=== PATIENT | female | born 1960 | race Hispanic/Latino ===

== ENCOUNTER 2022-02-27 10:28 | Emergency (ER) | payer BC ==
--- OUTSIDE RECORDS SUMMARY | 2022-02-27 10:35 | XMS REPORT | Clinical Summary ---
:1960 Author Organization [facility] MD [facility] Address [address] [place] [address] Care Team Providers Name Role Phone Avis Sheffield MD Unavailable Hao Mcpherson MD Unavailable Allergies Active Allergy Reactions Severity Noted Date Comments Sulfamethoxazole-Trime Other (See Comments) Low 08/09/2015 Soft stools, rash thoprim Other - Food 08/27/2015 Peanut allergy per allergy testing . Patient denies reaction to pea nuts Medications Medication Sig Dispensed Refills Start Date End Date Status cholecalciferol, Take 5,000 Units 0 Active vitamin D3, (VITAMIN by mouth as D3) 5,000 units tab needed. tablet coenzyme Q10 (CO Q-10) Take 100 mg by 0 Active 100 mg capsule mouth as needed. KRILL OIL ORAL Take 1 tablet by 0 Active mouth as needed. CYANOCOBALAMIN, Take 1 tablet by 0 Active VITAMIN B-12, (VITAMIN mouth as needed. B-12 ORAL) CALCIUM Take 6 tablets by 0 Ac tive CITRATE/VITAMIN D3 mouth as needed. 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 Overview: Right breast Polyp 04/16/2011 Overview: benign colon polyp Gastric reflux 04/16/2011 Osteopenia 04/16/2008 Hyperlipidemia Hiatal hernia Overview: Small hernia Surgical History Surgery Date Site/Laterality Comments COLONOSCOPY 06/14/2014 - 07/14/2014 UPPER GASTROINTESTINAL 04/16/2014 - ENDOSCOPY 04/15/2015 HYSTERECTOMY 04/16/2012 - bladder and rect al 04/15/2013 repair and left oophorectomy FOOT MASS EXCISION 03/16/2014 - Left 04/15/2014 EXCISION WIDE LOCAL FACIAL 12/15/2013 - AREA 01/13/2014 LUMPECTOMY BREAST 08/19/2015 Right Medical History Medical History Date Comments Hyperlipidemia Gastric reflux 2012 Polyp 2011 benign colon polyp Menopause Osteopenia 2009 Herpes zoster 1995 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 Ri ght breast Hiatal hernia Small hernia Basal cell carcinoma of skin 2014 Family History Medical History Relation Name Comments Melanoma Daughter Diabetes Father Heart disease Father Hyperlipidemia Father Diabetes Mother Hyperlipidemia Mother Relation Name Status Comments Daughter Alive Father Mother Alive Social History Tobacco Use Types Packs/Day Years Used Date Smoking Tobacco: Never Smokeless Tobacco: Never Alcohol Use Standard Drinks/Week Comments No 0 (1 standard drink = 0.6 oz pure alcoho l) Sex Assigned at Date Recorded Female 09/30/2018 4:33 PM CDT Obstetrics History Para Term AB IAB SAB Ectopic Multiple Living Live Births 4 3 0 1 1 3 2 Date Outcome GA Total Labor/2nd/3rd Weight Sex Delivery Anes PTL Mariela A 1 A5 Name Clin Labor IAB Para M Vag-Spont N Kayli ng Complications: None Para F Vag-Spont N Living Complications: None Para Comments Age ofMenarche: 12 Age of Parity: 18 Use of oral contraceptives for less than one year, and she has used premarin less than one year as well. Patient cl any history of abnormal p ap smears Last Filed Vital Signs Not on file Plan of Treatment Health Maintenance Due Date Last Done Comments COVID-19 Vaccination (#1) 1960 Results Not on fileafter 02/27/2021 Insurance Payer Benefit Plan / Subscriber ID Effective Dates Phone Addre ss Type Group [employer] [id number] 2018-Present [address] [facility] [id number] ([facility]) Care Teams Airport Screener Relationship Specialty Start Date End Date Avis Sheffield, PCP - External Referring 05/17/15 Hao Mcpherson MD PCP - External Follow Up A Internal Medicine 06/15/15
--- OUTSIDE RECORDS SUMMARY | 2022-02-27 10:37 | XMS REPORT | Continuity of Care Document ---
:1960 Author Organization [facility] t Address [address] [place] [address] Care Team Providers Name Role Phone [email or web address] Attending Clinician Unavailable Nereida Canada Attending Clinician [phone] Juan Francisco Dougherty Attending Clinician [phone] EBONI_Sb Admitting Clinician Unavailable Payers Payer Name Policy Type Policy Number Effective Date Expiration Date S [place] [id number] 2021 00:00:00 [place] Problems Condition Condition Condition Status Onset Resolution Last Treating Co mments Source Name Details Category Date Date Treatment Clinician Date 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 Center Right breast Polyp Polyp Disease Active Overview: Univer s 04-16 Formattin ity of 00:00: g of this note might be Anderso different n from the Cancer original. Center benign colon polyp Gastric Gastric Disease Active Univers reflux reflux 04-16 ity of 00:00: [place] 00 MD [facility] Osteopenia Osteopenia Disease Active U nivers 04-16 ity of 00:00: [place] 00 MD [facility] Atypical Atypical Problem Active [facility] a hyperplasi Hyperplasi Me dical a of a of breast Breast Cystocele Cystocele Problem Active [facility]ory via without without Medical uterine Uterine prolapse Prolapse Atrophic Atrophic Problem Active [facility] a vaginitis Vaginitis Medi alexa Increased Increased Problem Active [facility] via frequency Frequency Medi alexa of of urination Urination Urgent Urgent Problem Active [facility] desire to [place] to Medi alexa urinate Urinate Hyperlipid Hyperlipid Disease Active U nivers emia emia [facility] [place] MD [facility] Hiatal Hiatal Disease Active Overview: [facility] hernia hernia Formattin ity of g of this [place] note might be Andmonicao alanna n from the Cancer original. Center Small hernia Allergies, Adverse Reactions, Alerts Allergy Allergy Status Severity Reaction(s) Onset Inactive Treating Comm ents Source Name Type Date Date Clinician Other - Propensi Active Peanut Univers Food ty to 5-13 allergy ity of adverse 00:00: per [place] reaction 00 allergy s testing. Alcides Patient n denies Cancer reaction Center to peanuts Sulfamet Drug Active Other (See Soft Univ ers hoxazole Intolera Comments) 4-25 stools, it y of -Trimeth nce 00:00: rash [place] oprim 00 MD [facility] Miralax Allergy Active [facility] to Medical substanc e SULFA Allergy Active Rash [facility] (SULFONA to Medical MIDE substanc ANTIBIOT e ICS) Family History Family Member Diagnosis Comments Start Date Stop Date Source Natural father Heart disease [facility] [place] [facility] Natural father Hyperlipidemia [facility] [place] Natural father Diabetes [facility] [place] Natural mother Diabetes [facility] [place] Natural mother Hyperlipidemia [facility] MD [facility] Natural daughter Melanoma [facility] [place] MD [facility] Social History Social Habit Start Date Stop Date Quantity Comments Source Alcohol intake 2018-10-02 2018-10-02 Current University of 00:00:00 00:00:00 non-drinker of [facility] (finding[facility] Tobacco use and 2015-08-09 2015-08-09 Smokeless tobacco Un iversity of exposure 00:00:00 00:00:00 non-user [facility] Sex Assigned At [birth year] F Univers[facility] y of 00:00:00 00:00:00 Reshma wallace [facility] Smoking Status Start Date Stop Date Source Never smoked tobacco [facility] Medications Ordered Filled Start Stop Current Ordering Indication Dosage Frequency Signature Comments Components Source Medication Medication Date Date Medication? Clinician (SIG) Name Name cholecalcif Yes 5000U Take 5,000 Univers guru, 6-19 Units by ity of vitamin D3, [place]:19[place] (VITAMIN 53 needed. D3) 5,000 Anderso units tab n tablet [facility] coenzyme Yes 100mg Take 100 Univ ers Q10 (CO 6-19 mg by ity of Q-10) 100 10:19[place] mg capsule 53 needed. MD Marion hoang [facility] KRILL OIL Yes 1{tbl} Take 1 Univ ers ORAL 6-19 tablet by ity of 10:19: mouth as [place] 53 needed. MD Marion hoang [facility] CYANOCOBALA Yes 1{tbl} Take 1 Un binta MIN, 6-19 tablet by ity of VITAMIN 10:19: mouth as [place] B-12, 53 needed. (VITAMIN Anderso B-12 ORAL) viktor [facility] CALCIUM Yes 6{tbl} Take 6 Univer s CITRATE/VIT 6-19 tablets by it y of BRISENO D3 10:19: mouth as [place] (CALCIUM 53 needed. CITRATE + Anderso ORAL) [facility] azithromyci azithromyci No azithromyc [facility] n 250 mg n 250 mg in 250 mg Me dical tablet tablet tablet azithromyci azithromyci No azithromyc [facility] n 500 mg n 500 mg in 500 mg Me dical tablet tablet tablet bromphenira bromphenira No bromphenir [facility] mine-pseudo mine-pseudo amine-pseu Medical ephedrine-D ephedrine-D doephedrin M 2 mg-30 M 2 mg-30 e-DM 2 mg-10 mg/5 mg-10 mg/5 mg-30 mL oral mL oral mg-10 mg/5 syrup syrup mL oral syrup cephalexin cephalexin No cephalexin [facility] 250 mg 250 mg 250 mg Medical capsule capsule capsule Take 1 Take 1 Take 1 capsule by capsule by capsule by oral route oral route oral route as as as directed. directed. directed. esomeprazol esomeprazol No esomeprazo [facility] e magnesium e magnesium le M edical 20 mg 20 mg magnesium capsule,del capsule,del 20 mg ayed ayed capsule,de release release layed release etodolac etodolac No etodolac [facility] via 500 mg 500 mg 500 mg Medical tablet tablet tablet GaviLyte-G GaviLyte-G No GaviLyte-G [facility] 236 236 236 Medical gram-22.74 gram-22.74 gram-22.74 gram-6.74 gram-6.74 gram-6.74 gram-5.86 gram-5.86 gram-5.86 gram oral gram oral gram oral solution solution solution metformin metformin No metformin [facility] 500 mg 500 mg 500 mg Medical tablet tablet tablet nitrofurant nitrofurant No nitrofuran [facility] oin oin toin Medical monohydrate monohydrate monohydrat /macrocryst /macrocryst e/macrocry als 100 mg als 100 mg stals 100 capsule capsule mg capsule Take 1 Take 1 Take 1 capsule by capsule by capsule by oral route oral route oral route as as as directed. directed. directed. Premarin Premarin No Premarin [facility] via 0.625 0.625 0.625 Medical mg/gram mg/gram mg/gram vaginal vaginal vaginal cream cream cream ranitidine ranitidine No ranitidine [facility] 300 mg 300 mg 300 mg Medical tablet TAKE tablet TAKE tablet 1 TABLET BY 1 TABLET BY TAKE 1 MOUTH EVERY MOUTH EVERY TABLET BY DAY DAY MOUTH EVERY DAY RepHresh RepHresh No 1g RepHresh [facility] via vaginal gel vaginal gel vaginal Medical Insert 1 g Insert 1 g gel Insert every 72 every 72 1 g every hours by hours by 72 hours vaginal vaginal by vaginal route at route at route at bedtime for bedtime for bedtime 90 days. 90 days. for 90 days. Trimo-Mahajan Trimo-Mahajan No Trimo-Mahajan [facility] Jelly 0.025 Jelly 0.025 Jelly Medical %-0.01 % %-0.01 % 0.025 vaginal vaginal %-0.01 % INSERT 1 G INSERT 1 G vaginal EVERY 72 EVERY 72 INSERT 1 G HOURS BY HOURS BY EVERY 72 VAGINAL VAGINAL HOURS BY ROUTE ROUTE VAGINAL DIRECTED DIRECTED ROUTE FOR 30 FOR 30 DIRECTED DAYS. DAYS. FOR 30 DAYS. azithromyci azithromyci No azithromyc [facility] n 250 mg n 250 mg in 250 mg Me dical tablet tablet tablet azithromyci azithromyci No azithromyc [facility] n 500 mg n 500 mg in 500 mg Me dical tablet tablet tablet benzonatate benzonatate No benzonatat [facility] 200 mg 200 mg e 200 mg Medical capsule capsule capsule TAKE 1 TAKE 1 TAKE 1 CAPSULE BY CAPSULE BY CAPSULE BY MOUTH THREE MOUTH THREE MOUTH TIMES A DAY TIMES A DAY THREE NEEDED NEEDED TIMES A DAY NEEDED bromphenira bromphenira No bromphenir [facility] mine-pseudo mine-pseudo amine-pseu Medical ephedrine-D ephedrine-D doephedrin M 2 mg-30 M 2 mg-30 e-DM 2 mg-10 mg/5 mg-10 mg/5 mg-30 mL oral mL oral mg-10 mg/5 syrup syrup mL oral syrup cephalexin cephalexin No cephalexin [facility] 250 mg 250 mg 250 mg Medical capsule capsule capsule Take 1 Take 1 Take 1 capsule by capsule by capsule by oral route oral route oral route as as as directed. directed. directed. esomeprazol esomeprazol No esomeprazo [facility] e magnesium e magnesium le M edical 20 mg 20 mg magnesium capsule,del capsule,del 20 mg ayed ayed capsule,de release release layed release etodolac etodolac No etodolac [facility] via 500 mg 500 mg 500 mg Medical tablet tablet tablet GaviLyte-G GaviLyte-G No GaviLyte-G [facility] 236 236 236 Medical gram-22.74 gram-22.74 gram-22.74 gram-6.74 gram-6.74 gram-6.74 gram-5.86 gram-5.86 gram-5.86 gram oral gram oral gram oral solution solution solution metformin metformin No metformin [facility] 500 mg 500 mg 500 mg Medical tablet tablet tablet nitrofurant nitrofurant No nitrofuran [facility] oin oin toin Medical monohydrate monohydrate monohydrat /macrocryst /macrocryst e/macrocry als 100 mg als 100 mg stals 100 capsule capsule mg capsule Take 1 Take 1 Take 1 capsule by capsule by capsule by oral route oral route oral route as as as directed. directed. directed. nystatin nystatin No nystatin [facility] via 100,000 100,000 100,000 Medica l unit/mL unit/mL unit/mL oral oral oral suspension suspension suspension GIVE 5 ML GIVE 5 ML GIVE 5 ML BY BY BY MOUTH/THROA MOUTH/THROA MOUTH/THRO T SWISH AND T SWISH AND AT SWISH SWALLOW 4 SWALLOW 4 AND TIMES A DAY TIMES A DAY SWALLOW 4 NOT NOT TIMES A CONTRACTED* CONTRACTED* DAY NOT CONTRACTED Premarin Premarin No Premarin [facility] via 0.625 0.625 0.625 Medical mg/gram mg/gram mg/gram vaginal vaginal vaginal cream cream cream ranitidine ranitidine No ranitidine [facility] 300 mg 300 mg 300 mg Medical tablet TAKE tablet TAKE tablet 1 TABLET BY 1 TABLET BY TAKE 1 MOUTH EVERY MOUTH EVERY TABLET BY DAY DAY MOUTH EVERY DAY RepHresh RepHresh No 1g RepHresh [facility]ory via vaginal gel vaginal gel vaginal Medical Insert 1 g Insert 1 g gel Insert every 72 every 72 1 g every hours by hours by 72 hours vaginal vaginal by vaginal route at route at route at bedtime for bedtime for bedtime 90 days. 90 days. for 90 days. Trimo-Mahajan Trimo-Mahajan No Trimo-Mahajan [facility] Jelly 0.025 Jelly 0.025 Jelly Medical %-0.01 % %-0.01 % 0.025 vaginal vaginal %-0.01 % INSERT 1 G INSERT 1 G vaginal EVERY 72 EVERY 72 INSERT 1 G HOURS BY HOURS BY EVERY 72 VAGINAL VAGINAL HOURS BY ROUTE ROUTE VAGINAL DIRECTED DIRECTED ROUTE FOR 30 FOR 30 DIRECTED DAYS. DAYS. FOR 30 DAYS. azithromyci azithromyci No azithromyc [facility] n 250 mg n 250 mg in 250 mg Me dical tablet tablet tablet azithromyci azithromyci No azithromyc [facility] n 500 mg n 500 mg in 500 mg Me dical tablet tablet tablet benzonatate benzonatate No benzonatat [facility] 200 mg 200 mg e 200 mg Medical capsule capsule capsule TAKE 1 TAKE 1 TAKE 1 CAPSULE BY CAPSULE BY CAPSULE BY MOUTH THREE MOUTH THREE MOUTH TIMES A DAY TIMES A DAY THREE NEEDED NEEDED TIMES A DAY NEEDED bromphenira bromphenira No bromphenir [facility] mine-pseudo mine-pseudo amine-pseu Medical ephedrine-D ephedrine-D doephedrin M 2 mg-30 M 2 mg-30 e-DM 2 mg-10 mg/5 mg-10 mg/5 mg-30 mL oral mL oral mg-10 mg/5 syrup syrup mL oral syrup cephalexin cephalexin No cephalexin [facility] 250 mg 250 mg 250 mg Medical capsule capsule capsule Take 1 Take 1 Take 1 capsule by capsule by capsule by oral route oral route oral route as as as directed. directed. directed. esomeprazol esomeprazol No esomeprazo [facility] e magnesium e magnesium le M edical 20 mg 20 mg magnesium capsule,del capsule,del 20 mg ayed ayed capsule,de release release layed release etodolac etodolac No etodolac [facility] via 500 mg 500 mg 500 mg Medical tablet tablet tablet GaviLyte-G GaviLyte-G No GaviLyte-G [facility] 236 236 236 Medical gram-22.74 gram-22.74 gram-22.74 gram-6.74 gram-6.74 gram-6.74 gram-5.86 gram-5.86 gram-5.86 gram oral gram oral gram oral solution solution solution metformin metformin No metformin [facility] 500 mg 500 mg 500 mg Medical tablet tablet tablet nitrofurant nitrofurant No nitrofuran [facility] oin oin toin Medical monohydrate monohydrate monohydrat /macrocryst /macrocryst e/macrocry als 100 mg als 100 mg stals 100 capsule capsule mg capsule Take 1 Take 1 Take 1 capsule by capsule by capsule by oral route oral route oral route as as as directed. directed. directed. nystatin nystatin No nystatin [facility] via 100,000 100,000 100,000 Medica l unit/mL unit/mL unit/mL oral oral oral suspension suspension suspension GIVE 5 ML GIVE 5 ML GIVE 5 ML BY BY BY MOUTH/THROA MOUTH/THROA MOUTH/THRO T SWISH AND T SWISH AND AT SWISH SWALLOW 4 SWALLOW 4 AND TIMES A DAY TIMES A DAY SWALLOW 4 NOT NOT TIMES A CONTRACTED* CONTRACTED* DAY NOT CONTRACTED Premarin Premarin No Premarin [facility] via 0.625 0.625 0.625 Medical mg/gram mg/gram mg/gram vaginal vaginal vaginal cream cream cream ranitidine ranitidine No ranitidine [facility] 300 mg 300 mg 300 mg Medical tablet TAKE tablet TAKE tablet 1 TABLET BY 1 TABLET BY TAKE 1 MOUTH EVERY MOUTH EVERY TABLET BY DAY DAY MOUTH EVERY DAY RepHresh RepHresh No 1g RepHresh Nory via vaginal gel vaginal gel vaginal Medical Insert 1 g Insert 1 g gel Insert every 72 every 72 1 g every hours by hours by 72 hours vaginal vaginal by vaginal route at route at route at bedtime for bedtime for bedtime 90 days. 90 days. for 90 days. Trimo-Mahajan Trimo-Mahajan No Trimo-Mahajan [facility] Jelly 0.025 Jelly 0.025 Jelly Medical %-0.01 % %-0.01 % 0.025 vaginal vaginal %-0.01 % INSERT 1 G INSERT 1 G vaginal EVERY 72 EVERY 72 INSERT 1 G HOURS BY HOURS BY EVERY 72 VAGINAL VAGINAL HOURS BY ROUTE ROUTE VAGINAL DIRECTED DIRECTED ROUTE FOR 30 FOR 30 DIRECTED DAYS. DAYS. FOR 30 DAYS. azithromyci azithromyci No azithromyc [facility] n 250 mg n 250 mg in 250 mg Me dical tablet tablet tablet azithromyci azithromyci No azithromyc [facility] n 500 mg n 500 mg in 500 mg Me dical tablet tablet tablet benzonatate benzonatate No benzonatat [facility] 200 mg 200 mg e 200 mg Medical capsule capsule capsule TAKE 1 TAKE 1 TAKE 1 CAPSULE BY CAPSULE BY CAPSULE BY MOUTH THREE MOUTH THREE MOUTH TIMES A DAY TIMES A DAY THREE NEEDED NEEDED TIMES A DAY NEEDED bromphenira bromphenira No bromphenir [facility] mine-pseudo mine-pseudo amine-pseu Medical ephedrine-D ephedrine-D doephedrin M 2 mg-30 M 2 mg-30 e-DM 2 mg-10 mg/5 mg-10 mg/5 mg-30 mL oral mL oral mg-10 mg/5 syrup syrup mL oral syrup cephalexin cephalexin No cephalexin [facility] 250 mg 250 mg 250 mg Medical capsule capsule capsule Take 1 Take 1 Take 1 capsule by capsule by capsule by oral route oral route oral route as as as directed. directed. directed. esomeprazol esomeprazol No esomeprazo [facility] e magnesium e magnesium le M edical 20 mg 20 mg magnesium capsule,del capsule,del 20 mg ayed ayed capsule,de release release layed release etodolac etodolac No etodolac [facility] via 500 mg 500 mg 500 mg Medical tablet tablet tablet GaviLyte-G GaviLyte-G No GaviLyte-G [facility] 236 236 236 Medical gram-22.74 gram-22.74 gram-22.74 gram-6.74 gram-6.74 gram-6.74 gram-5.86 gram-5.86 gram-5.86 gram oral gram oral gram oral solution solution solution metformin metformin No metformin [facility] 500 mg 500 mg 500 mg Medical tablet tablet tablet nitrofurant nitrofurant No nitrofuran [facility] oin oin toin Medical monohydrate monohydrate monohydrat /macrocryst /macrocryst e/macrocry als 100 mg als 100 mg stals 100 capsule capsule mg capsule Take 1 Take 1 Take 1 capsule by capsule by capsule by oral route oral route oral route as as as directed. directed. directed. nystatin nystatin No nystatin [facility] via 100,000 100,000 100,000 Medica l unit/mL unit/mL unit/mL oral oral oral suspension suspension suspension GIVE 5 ML GIVE 5 ML GIVE 5 ML BY BY BY MOUTH/THROA MOUTH/THROA MOUTH/THRO T SWISH AND T SWISH AND AT SWISH SWALLOW 4 SWALLOW 4 AND TIMES A DAY TIMES A DAY SWALLOW 4 NOT NOT TIMES A CONTRACTED* CONTRACTED* DAY NOT CONTRACTED Premarin Premarin No Premarin [facility] via 0.625 0.625 0.625 Medical mg/gram mg/gram mg/gram vaginal vaginal vaginal cream cream cream ranitidine ranitidine No ranitidine [facility] 300 mg 300 mg 300 mg Medical tablet TAKE tablet TAKE tablet 1 TABLET BY 1 TABLET BY TAKE 1 MOUTH EVERY MOUTH EVERY TABLET BY DAY DAY MOUTH EVERY DAY RepHresh RepHresh No 1g RepHresh Nory via vaginal gel vaginal gel vaginal Medical Insert 1 g Insert 1 g gel Insert every 72 every 72 1 g every hours by hours by 72 hours vaginal vaginal by vaginal route at route at route at bedtime for bedtime for bedtime 90 days. 90 days. for 90 days. Trimo-Mahajan Trimo-Mahajan No Trimo-Mahajan [facility] Jelly 0.025 Jelly 0.025 Jelly Medical %-0.01 % %-0.01 % 0.025 vaginal vaginal %-0.01 % INSERT 1 G INSERT 1 G vaginal EVERY 72 EVERY 72 INSERT 1 G HOURS BY HOURS BY EVERY 72 VAGINAL VAGINAL HOURS BY ROUTE ROUTE VAGINAL DIRECTED DIRECTED ROUTE FOR 30 FOR 30 DIRECTED DAYS. DAYS. FOR 30 DAYS. azithromyci azithromyci No azithromyc [facility] n 250 mg n 250 mg in 250 mg Me dical tablet tablet tablet azithromyci azithromyci No azithromyc [facility] n 500 mg n 500 mg in 500 mg Me dical tablet tablet tablet benzonatate benzonatate No benzonatat [facility] 200 mg 200 mg e 200 mg Medical capsule capsule capsule TAKE 1 TAKE 1 TAKE 1 CAPSULE BY CAPSULE BY CAPSULE BY MOUTH THREE MOUTH THREE MOUTH TIMES A DAY TIMES A DAY THREE NEEDED NEEDED TIMES A DAY NEEDED bromphenira bromphenira No bromphenir [facility] mine-pseudo mine-pseudo amine-pseu Medical ephedrine-D ephedrine-D doephedrin M 2 mg-30 M 2 mg-30 e-DM 2 mg-10 mg/5 mg-10 mg/5 mg-30 mL oral mL oral mg-10 mg/5 syrup syrup mL oral syrup cephalexin cephalexin No cephalexin [facility] 250 mg 250 mg 250 mg Medical capsule capsule capsule Take 1 Take 1 Take 1 capsule by capsule by capsule by oral route oral route oral route as as as directed. directed. directed. esomeprazol esomeprazol No esomeprazo [facility] e magnesium e magnesium le M edical 20 mg 20 mg magnesium capsule,del capsule,del 20 mg ayed ayed capsule,de release release layed release etodolac etodolac No etodolac [facility] via 500 mg 500 mg 500 mg Medical tablet tablet tablet GaviLyte-G GaviLyte-G No GaviLyte-G [facility] 236 236 236 Medical gram-22.74 gram-22.74 gram-22.74 gram-6.74 gram-6.74 gram-6.74 gram-5.86 gram-5.86 gram-5.86 gram oral gram oral gram oral solution solution solution metformin metformin No metformin [facility] 500 mg 500 mg 500 mg Medical tablet tablet tablet nitrofurant nitrofurant No nitrofuran [facility] oin oin toin Medical monohydrate monohydrate monohydrat /macrocryst /macrocryst e/macrocry als 100 mg als 100 mg stals 100 capsule capsule mg capsule Take 1 Take 1 Take 1 capsule by capsule by capsule by oral route oral route oral route as as as directed. directed. directed. nystatin nystatin No nystatin [facility] via 100,000 100,000 100,000 Medica l unit/mL unit/mL unit/mL oral oral oral suspension suspension suspension GIVE 5 ML GIVE 5 ML GIVE 5 ML BY BY BY MOUTH/THROA MOUTH/THROA MOUTH/THRO T SWISH AND T SWISH AND AT SWISH SWALLOW 4 SWALLOW 4 AND TIMES A DAY TIMES A DAY SWALLOW 4 NOT NOT TIMES A CONTRACTED* CONTRACTED* DAY NOT CONTRACTED Premarin Premarin No Premarin [facility] via 0.625 0.625 0.625 Medical mg/gram mg/gram mg/gram vaginal vaginal vaginal cream cream cream ranitidine ranitidine No ranitidine [facility] 300 mg 300 mg 300 mg Medical tablet TAKE tablet TAKE tablet 1 TABLET BY 1 TABLET BY TAKE 1 MOUTH EVERY MOUTH EVERY TABLET BY DAY DAY MOUTH EVERY DAY RepHresh RepHresh No 1g RepHresh Nory via vaginal gel vaginal gel vaginal Medical Insert 1 g Insert 1 g gel Insert every 72 every 72 1 g every hours by hours by 72 hours vaginal vaginal by vaginal route at route at route at bedtime for bedtime for bedtime 90 days. 90 days. for 90 days. Trimo-Mahajan Trimo-Mahajan No Trimo-Mahajan [facility] Jelly 0.025 Jelly 0.025 Jelly Medical %-0.01 % %-0.01 % 0.025 vaginal vaginal %-0.01 % INSERT 1 G INSERT 1 G vaginal EVERY 72 EVERY 72 INSERT 1 G HOURS BY HOURS BY EVERY 72 VAGINAL VAGINAL HOURS BY ROUTE ROUTE VAGINAL DIRECTED DIRECTED ROUTE FOR 30 FOR 30 DIRECTED DAYS. DAYS. FOR 30 DAYS. azithromyci azithromyci No azithromyc [facility] n 250 mg n 250 mg in 250 mg Me dical tablet tablet tablet azithromyci azithromyci No azithromyc [facility] n 500 mg n 500 mg in 500 mg Me dical tablet tablet tablet benzonatate benzonatate No benzonatat [facility] 200 mg 200 mg e 200 mg Medical capsule capsule capsule TAKE 1 TAKE 1 TAKE 1 CAPSULE BY CAPSULE BY CAPSULE BY MOUTH THREE MOUTH THREE MOUTH TIMES A DAY TIMES A DAY THREE NEEDED NEEDED TIMES A DAY NEEDED bromphenira bromphenira No bromphenir [facility] mine-pseudo mine-pseudo amine-pseu Medical ephedrine-D ephedrine-D doephedrin M 2 mg-30 M 2 mg-30 e-DM 2 mg-10 mg/5 mg-10 mg/5 mg-30 mL oral mL oral mg-10 mg/5 syrup syrup mL oral syrup cephalexin cephalexin No cephalexin [facility] 250 mg 250 mg 250 mg Medical capsule capsule capsule Take 1 Take 1 Take 1 capsule by capsule by capsule by oral route oral route oral route as as as directed. directed. directed. esomeprazol esomeprazol No esomeprazo [facility] e magnesium e magnesium le M edical 20 mg 20 mg magnesium capsule,del capsule,del 20 mg ayed ayed capsule,de release release layed release etodolac etodolac No etodolac [facility] via 500 mg 500 mg 500 mg Medical tablet tablet tablet GaviLyte-G GaviLyte-G No GaviLyte-G [facility] 236 236 236 Medical gram-22.74 gram-22.74 gram-22.74 gram-6.74 gram-6.74 gram-6.74 gram-5.86 gram-5.86 gram-5.86 gram oral gram oral gram oral solution solution solution metformin metformin No metformin [facility] 500 mg 500 mg 500 mg Medical tablet tablet tablet nitrofurant nitrofurant No nitrofuran [facility] oin oin toin Medical monohydrate monohydrate monohydrat /macrocryst /macrocryst e/macrocry als 100 mg als 100 mg stals 100 capsule capsule mg capsule Take 1 Take 1 Take 1 capsule by capsule by capsule by oral route oral route oral route as as as directed. directed. directed. nystatin nystatin No nystatin [facility] via 100,000 100,000 100,000 Medica l unit/mL unit/mL unit/mL oral oral oral suspension suspension suspension GIVE 5 ML GIVE 5 ML GIVE 5 ML BY BY BY MOUTH/THROA MOUTH/THROA MOUTH/THRO T SWISH AND T SWISH AND AT SWISH SWALLOW 4 SWALLOW 4 AND TIMES A DAY TIMES A DAY SWALLOW 4 NOT NOT TIMES A CONTRACTED* CONTRACTED* DAY NOT CONTRACTED Premarin Premarin No Premarin [facility]ory via 0.625 0.625 0.625 Medical mg/gram mg/gram mg/gram vaginal vaginal vaginal cream cream cream ranitidine ranitidine No ranitidine [facility] 300 mg 300 mg 300 mg Medical tablet TAKE tablet TAKE tablet 1 TABLET BY 1 TABLET BY TAKE 1 MOUTH EVERY MOUTH EVERY TABLET BY DAY DAY MOUTH EVERY DAY RepHresh RepHresh No 1g RepHresh Nory via vaginal gel vaginal gel vaginal Medical Insert 1 g Insert 1 g gel Insert every 72 every 72 1 g every hours by hours by 72 hours vaginal vaginal by vaginal route at route at route at bedtime for bedtime for bedtime 90 days. 90 days. for 90 days. Trimo-Mahajan Trimo-Mahajan No Trimo-Mahajan [facility] Jelly 0.025 Jelly 0.025 Jelly Medical %-0.01 % %-0.01 % 0.025 vaginal vaginal %-0.01 % INSERT 1 G INSERT 1 G vaginal EVERY 72 EVERY 72 INSERT 1 G HOURS BY HOURS BY EVERY 72 VAGINAL VAGINAL HOURS BY ROUTE ROUTE VAGINAL DIRECTED DIRECTED ROUTE FOR 30 FOR 30 DIRECTED DAYS. DAYS. FOR 30 DAYS. azithromyci azithromyci No azithromyc [facility] n 250 mg n 250 mg in 250 mg Me dical tablet tablet tablet azithromyci azithromyci No azithromyc [facility] n 500 mg n 500 mg in 500 mg Me dical tablet tablet tablet bromphenira bromphenira No bromphenir [facility] mine-pseudo mine-pseudo amine-pseu Medical ephedrine-D ephedrine-D doephedrin M 2 mg-30 M 2 mg-30 e-DM 2 mg-10 mg/5 mg-10 mg/5 mg-30 mL oral mL oral mg-10 mg/5 syrup syrup mL oral syrup cephalexin cephalexin No cephalexin [facility] 250 mg 250 mg 250 mg Medical capsule capsule capsule Take 1 Take 1 Take 1 capsule by capsule by capsule by oral route oral route oral route as as as directed. directed. directed. esomeprazol esomeprazol No esomeprazo [facility] e magnesium e magnesium le M edical 20 mg 20 mg magnesium capsule,del capsule,del 20 mg ayed ayed capsule,de release release layed release etodolac etodolac No etodolac [facility] via 500 mg 500 mg 500 mg Medical tablet tablet tablet GaviLyte-G GaviLyte-G No [employer] [phone] Medical gram-22.74 gram-22.74 gram-22.74 gram-6.74 gram-6.74 gram-6.74 gram-5.86 gram-5.86 gram-5.86 gram oral gram oral gram oral solution solution solution metformin metformin No metformin [facility] 500 mg 500 mg 500 mg Medical tablet tablet tablet nitrofurant nitrofurant No nitrofuran [facility] oin oin toin Medical monohydrate monohydrate monohydrat /macrocryst /macrocryst e/macrocry als 100 mg als 100 mg stals 100 capsule capsule mg capsule Take 1 Take 1 Take 1 capsule by capsule by capsule by oral route oral route oral route as as as directed. directed. directed. Premarin Premarin No Premarin Nory via 0.625 0.625 0.625 Medical mg/gram mg/gram mg/gram vaginal vaginal vaginal cream cream cream ranitidine ranitidine No ranitidine [facility] 300 mg 300 mg 300 mg Medical tablet TAKE tablet TAKE tablet 1 TABLET BY 1 TABLET BY TAKE 1 MOUTH EVERY MOUTH EVERY TABLET BY DAY DAY MOUTH EVERY DAY RepHresh RepHresh No 1g RepHresh Nory via vaginal gel vaginal gel vaginal Medical Insert 1 g Insert 1 g gel Insert every 72 every 72 1 g every hours by hours by 72 hours vaginal vaginal by vaginal route at route at route at bedtime for bedtime for bedtime 90 days. 90 days. for 90 days. Trimo-Mahajan Trimo-Mahajan No Trimo-Mahajan [facility] Jelly 0.025 Jelly 0.025 Jelly Medical %-0.01 % %-0.01 % 0.025 vaginal vaginal %-0.01 % INSERT 1 G INSERT 1 G vaginal EVERY 72 EVERY 72 INSERT 1 G HOURS BY HOURS BY EVERY 72 VAGINAL VAGINAL HOURS BY ROUTE ROUTE VAGINAL DIRECTED DIRECTED ROUTE FOR 30 FOR 30 DIRECTED DAYS. DAYS. FOR 30 DAYS. Vital Signs Vital Name Observation Time Observation Value Comments Source BP Diastolic 2021-09-09 00:00:00 82 mm[Hg] [facility] Height 2021-09-09 00:00:00 64 [in_i] [facility] BMI (Body Mass Index) 2021-09-09 00:00:00 24 kg/m2 [facility] BP Systolic 2021-09-09 00:00:00 129 mm[Hg] [facility] Body Weight 2021-09-09 00:00:00 140 [lb_av] [facility] BP Diastolic 2021-08-09 00:00:00 82 mm[Hg] [facility] Height 2021-08-09 00:00:00 64 [in_i] [facility] BMI (Body Mass Index) 2021-08-09 00:00:00 25.4 kg/m2 [facility] BP Systolic 2021-08-09 00:00:00 129 mm[Hg] [facility] Body Weight 2021-08-09 00:00:00 148 [lb_av] [facility] BP Diastolic 2021-07-12 00:00:00 82 mm[Hg] [facility] Height 2021-07-12 00:00:00 64 [in_i] [facility] BMI (Body Mass Index) 2021-07-12 00:00:00 25.4 kg/m2 [facility] BP Systolic 2021-07-12 00:00:00 129 mm[Hg] [facility] Body Weight 2021-07-12 00:00:00 148 [lb_av] [facility] BP Diastolic 2021-06-10 00:00:00 82 mm[Hg] [facility] Height 2021-06-10 00:00:00 64 [in_i] [facility] BMI (Body Mass Index) 2021-06-10 00:00:00 25.1 kg/m2 [facility] BP Systolic 2021-06-10 00:00:00 129 mm[Hg] [facility] Body Weight 2021-06-10 00:00:00 146 [lb_av] [facility] BP Diastolic 2021-03-31 00:00:00 82 mm[Hg] [facility] Height 2021-03-31 00:00:00 64 [in_i] [facility] BMI (Body Mass Index) 2021-03-31 00:00:00 25.7 kg/m2 [facility] BP Systolic 2021-03-31 00:00:00 129 mm[Hg] [facility] Body Weight 2021-03-31 00:00:00 150 [lb_av] [facility] BP Diastolic 2021-03-14 00:00:00 82 mm[Hg] [facility] Height 2021-03-14 00:00:00 64 [in_i] [facility] BMI (Body Mass Index) 2021-03-14 00:00:00 27.5 kg/m2 [facility] BP Systolic 2021-03-14 00:00:00 129 mm[Hg] [facility] Body Weight 2021-03-14 00:00:00 160 [lb_av] [facility] Procedures This patient has no known procedures. Plan of Care Planned Activity Planned Date Details Comments Source Future Scheduled Test 2021-12-21 COVID-19 Vaccination [facility] 10:02:59 (#1) [code = MD Kamran mata COVID-[facility] (#1)] Diagnostic Test 2021-09-09 urinalysis, dipstick [facility] Pending 00:00:00 [code = urinalysis, dipstick] Future Appointment 2022-03-17 Nereida Tatum Fl dical 08:45:[address]; [address], [place] [address] Encounters Start End Encounter Admission Attending Care Care Encounter Source Date/Time Date/Time Type Type Clinicians Facility Department ID 2021-10-31 2021-10-31 [facility] [id number] [facility] 05:00:00 05:00:00 _Yumiko [id number] [facility] alexa 2021-09-09 2021-09-09 [facility] [id number] [facility] 01:54:00 01:54:00 _Yumiko [id number] [facility] alexa 2021-09-09 2021-09-09 Nereida [facility] [id number] [facility] 00:00:00 00:00:00 [facility] - [facility] latisha: _[address], [address], [place] [address] , Ph. 2021-09-09 2021-09-09 Outpatient [facility] [address] PRIV PRIV [id number] 00:00:00 00:00:00 Mihaela javierNereida [id number] Anastasiya [id number] 2021-09-08 2021-09-08 Outpatient [facility] PRIV PRIV [id number] [facility] 01:30:00 01:30:00 _Miller-M [id number] Medi alexa 2021-08-30 2021-08-30 Outpatient [facility] PRIV PRIV [id number] [facility] 11:04:00 11:04:00 _Miller-M [id number] Medi alexa 2021-08-11 2021-08-11 Outpatient [facility] PRIV PRIV 527 [id number] [facility] 02:22:00 02:22:00 _Miller-M [id number] Medi alexa 2021-08-09 2021-08-09 Outpatient [facility] PRIV PRIV [id number] [facility] 02:30:00 02:30:00 _Miller-M [id number] Medi alexa 2021-08-09 2021-08-09 Nereida [facility] 426 [facility] 00:00:00 00:00:[address] [facility] - Medic [facility] GC_[facility] MD latisha: _[address], [address], [place] [address] , Ph. 2021-08-09 2021-08-09 Outpatient [facility] [address] PRIV PRIV [id number] 00:00:00 00:00:00 concepcion Nereida [id number] Anastasiya [id number] 2021-08-04 2021-08-04 Outpatient [facility] PRIV PRIV [id number] [facility] 01:29:00 01:29:00 _Miller-M [id number] Medi alexa 2021-08-04 2021-08-04 Nereida [facility] 421 [facility] 00:00:00 00:00:00 [facility] Medic [facility] MD latisha: _[address], [address], [place] [address] , Ph. 2021-08-04 2021-08-04 Outpatient [facility] PRIV [id number] 00:00:00 00:00:00 Nereida javier [id number] [place] [id number] 2021-08-03 2021-08-03 Outpatient [facility] PRIV PRIV [id number] [facility] 01:30:00 01:30:00 _Miller-M [id number] Medi alexa 2021-07-12 2021-07-12 Outpatient [facility] PRIV PRIV [id number] [facility] 11:00:00 11:00:00 _Miller-M [id number] Medi alexa 2021-07-12 2021-07-12 [facility] - [facility] 329 [facility] 00:00:00 00:00:00 [facility] - Medic [facility] latisha: _[address], [address], [place] [address] , Ph. 2021-07-12 2021-07-12 Outpatient [facility] [address] PRIV PRIV [id number] 00:00:00 00:00:00 Nereida javier [id number] Anastasiya [id number] 2021-07-11 2021-07-11 Outpatient [facility] PRIV PRIV [id number] [facility] 04:51:00 04:51:00 _Miller-M [id number] Medi alexa 2021-07-08 2021-07-08 Outpatient [facility] PRIV PRIV 527 [id number] [facility] 12:41:00 12:41:00 _Miller-M [id number] Medi alexa 2021-06-10 2021-06-10 Outpatient [facility] PRIV PRIV [id number] [facility] 01:42:00 01:42:00 _Miller-M [id number] Medi alexa 2021-06-10 2021-06-10 Nereida [facility] [id number] [facility] 00:00:00 00:00:00 [facility] good MD: _Josh [address] [place] [address], [address], [place] [address] , Ph. 2021-06-10 2021-06-10 Outpatient [facility] [address] PRIV PRIV [id number] 00:00:00 00:00:00 Nereida javier [id number] Anastasiya [id number] 2021-06-09 2021-06-09 Outpatient [facility] PRIV PRIV 527 [id number] [facility] 04:09:00 04:09:00 _PramodMichelleIzzy [id number] Medi alexa 2021-06-01 2021-06-01 Outpatient [facility] PRIV PRIV 527 [id number] [facility] 10:56:00 10:56:00 _PramodMichelleIzzy [id number] Medi alexa 2021-05-15 2021-05-15 Outpatient [facility] PRIV PRIV 527 [id number] [facility] 01:42:00 01:42:00 _PramodMichelleIzzy [id number] Medi alexa 2021-04-17 2021-04-17 Outpatient [facility] PRIV PRIV 527 [id number] [facility] 01:59:00 01:59:00 _PramodMichelleIzzy [id number] Medi alexa 2021-03-31 2021-03-31 Outpatient [facility] PRIV PRIV 527 [id number] [facility] 05:18:00 05:18:00 _PramodMichelleIzzy [id number] Medi alexa 2021-03-31 2021-03-31 Nereida [facility] [id number] [facility] 00:00:00 00:00:00 [facility] good MD: _Josh [address] [place] [address], [address], [place] [address] , Ph. 2021-03-31 2021-03-31 Outpatient [facility] [address] PRIV PRIV [id number] 00:00:00 00:00:00 Nereida javier [id number] Anastasiya [id number] 2021-03-14 2021-03-14 Outpatient [facility] [id number] [facility] 12:05:00 12:05:00 _Yumiko [id number] [facility] 2021-03-14 2021-03-14 [id number] 2021-03-14 [id number] 00:00:00 00:00:00 Farhat FLAME HARDENER: Health - Med ical [address] [facility], [address], [place] [address] , Ph. 2021-03-07 [id number] 00:00:00 00:00:00 Farhat FLAME HARDENER: Health - Med ical [address] [facility] [address] [facility], [address], [place] [address] , Ph. Results Test Description Test Time Test Comments Results Result Comments Source Urinalysis macro (dipstick) panel - Urine 2021-09-09 13:00:1 2 Test Item Value Reference Range Interpretation Comme nts Leukocytes (test code = Leukocytes) Negative Nitrite (test code = Nitrite) negative Protein (test code = Protein) Negative pH (test code = pH) 5.0 Blood (test code = Blood) Small Ketone (test code = Ketone) Negative Glucose (test code = Glucose) Negative Appearance (test code = Appearance) Clear Color (test code = Color) Yellow [facility] MedicalUrinalysis macro (dipstick) panel - [id number] 10:28:40 Test Item Value Reference Range Interpretation Comments Leukocytes (test code = Negative Leukocytes) Nitrite (test code = Nitrite) negative Protein (test code = Protein) Negative pH (test code = pH) 6.0 Blood (test code = Blood) Negative Ketone (test code = Ketone) Negative Appearance (test code = Clear Appearance) Color (test code = Color) Pale Yellow [facility] MedicalUrinalysis macro (dipstick) panel - [id number] 10:28:40 Test Item Value Reference Range Interpretation Comments Leukocytes (test code = Negative Leukocytes) Nitrite (test code = Nitrite) negative Protein (test code = Protein) Negative pH (test code = pH) 6.0 Blood (test code = Blood) Negative Ketone (test code = Ketone) Negative Appearance (test code = Clear Appearance) Color (test code = Color) Pale Yellow [facility] MedicalUrinalysis macro (dipstick) panel - [id number] 09:41:29 Test Item Value Reference Range Interpretation Comments Leukocytes (test code = Negative Leukocytes) Nitrite (test code = Nitrite) negative Protein (test code = Protein) Negative pH (test code = pH) 5.0 Blood (test code = Blood) Negative Ketone (test code = Ketone) Negative Bilirubin (test code = Bilirubin) Glucose (test code = Glucose) Negative Appearance (test code = Slightly Cloudy Appearance) Color (test code = Color) Yellow [facility] MedicalUrinalysis macro (dipstick) panel - [id number] 09:41:29 Test Item Value Reference Range Interpretation Comments Leukocytes (test code = Negative Leukocytes) Nitrite (test code = Nitrite) negative Protein (test code = Protein) Negative pH (test code = pH) 5.0 Blood (test code = Blood) Negative Ketone (test code = Ketone) Negative Bilirubin (test code = Bilirubin) Glucose (test code = Glucose) Negative Appearance (test code = Slightly Cloudy Appearance) Color (test code = Color) Yellow [facility] MedicalUrinalysis macro (dipstick) panel - [id number] 09:41:29 Test Item Value Reference Range Interpretation Comments Leukocytes (test code = Negative Leukocytes) Nitrite (test code = Nitrite) negative Protein (test code = Protein) Negative pH (test code = pH) 5.0 Blood (test code = Blood) Negative Ketone (test code = Ketone) Negative Bilirubin (test code = Bilirubin) Glucose (test code = Glucose) Negative Appearance (test code = Slightly Cloudy Appearance) Color (test code = Color) Yellow [facility] MedicalUrinalysis macro (dipstick) panel - [id number] 12:05:06 Test Item Value Reference Range Interpretation Comments Leukocytes (test code = Leukocytes) Negative Nitrite (test code = Nitrite) negative Protein (test code = Protein) Negative pH (test code = pH) 5.0 Blood (test code = Blood) Small Ketone (test code = Ketone) Negative Glucose (test code = Glucose) Negative Appearance (test code = Appearance) Clear Color (test code = Color) Yellow [facility] MedicalUrinalysis macro (dipstick) panel - [id number] 15:48:03 Test Item Value Reference Range Interpretation Comments Leukocytes (test code = Negative Leukocytes) Nitrite (test code = Nitrite) negative Protein (test code = Protein) Negative pH (test code = pH) 5.0 Blood (test code = Blood) Small Ketone (test code = Ketone) Negative Glucose (test code = Glucose) Negative Appearance (test code = Clear Appearance) Color (test code = Color) Pale Yellow [facility] MedicalUrinalysis macro (dipstick) panel - [id number] 00:00:00 Test Item Value Reference Range Interpretation Comments Glucose [Mass/volume] in Urine 1.008 1.003-1.030 --2 hours post 75 g glucose PO (test code = 1520-6) Glucose [Mass/volume] in Serum 5.5 5.0-8.0 or Plasma --2 hours post meal (test code = 1521-4) Glucose [Mass/volume] in Serum negative negative or Plasma --30 minutes post 0.5 g/kg glucose IV (test code = 1522-2) Glucose [Mass/volume] in Serum negative negative or Plasma --30 minutes post 0.05-0.15 U insulin/kg IV post 12H CFst (test code = 1523-0) Glucose [Mass/volume] in Serum negative negative or Plasma --30 minutes post 0.1 U/kg insulin (test code = 1524-8) Glucose [Mass/volume] in Serum 0.2 mg/dL 0.2-1.0 or Plasma --30 minutes post 100 g glucose PO (test code = 1525-5) Glucose [Mass/volume] in Serum negative negative or Plasma --30 minutes post 50 g lactose PO (test code = 1526-3) Glucose [Mass/volume] in Serum negative negative or Plasma --30 minutes post 75 g glucose PO (test code = 1527-1) Glucose [Mass/volume] in Serum negative negative or Plasma --30 minutes post dose insulin IV (test code = 1528-9) Deprecated Glucose none none [Mass/volume] in Serum or Plasma --30 minutes post dose insulin IV (test code = 1529-7) Glucose [Mass/volume] in Serum 0-4 0-4 or Plasma --3 minutes post 0.5 g/kg glucose IV (test code = 1534-7) Erythrocytes [#/area] in Urine none seen none seen sediment by Microscopy high power field (test code = 18790-9) Glucose [Mass/volume] in Serum none seen 0-1 or Plasma --5 minutes post 0.5 g/kg glucose IV (test code = 1543-8) Deprecated Glucose 0-4 0-4 [Mass/volume] in Serum or Plasma --6 hours post 100 g glucose PO (test code = 1545-3) Glucose [Mass/volume] in Urine none none-few --6 hours post 100 g glucose PO (test code = 1546-1) Glucose [Mass/volume] in Serum none seen 0-1 or Plasma --baseline (test code = 1547-9) Glucose [Mass/volume] in Serum none none-few or Plasma --pre 100 g glucose PO (test code = 1549-5) Coproporphyrin [Mass/time] in none none 24 hour Stool (test code = 2135-2) Leukocyte esterase [Presence] negative negative in Urine by Test strip (test code = 5799-2) Color of Urine (test code = yellow yellow, straw, cordelia 5778-6) Character of Urine (test code clear clear = 43394-7) [facility] MedicalUrinalysis macro (dipstick) panel - [id number] 11:03:08 Test Item Value Reference Range Interpretation Comments Leukocytes (test code = Negative Leukocytes) Nitrite (test code = Nitrite) negative Protein (test code = Protein) Negative pH (test code = pH) 6.0 Blood (test code = Blood) Large Ketone (test code = Ketone) Negative Glucose (test code = Glucose) Negative Appearance (test code = Clear Appearance) Color (test code = Color) Pale Yellow [facility] MedicalUrinalysis macro (dipstick) panel - [id number] 11:03:08 Test Item Value Reference Range Interpretation Comments Leukocytes (test code = Negative Leukocytes) Nitrite (test code = Nitrite) negative Protein (test code = Protein) Negative pH (test code = pH) 6.0 Blood (test code = Blood) Large Ketone (test code = Ketone) Negative Glucose (test code = Glucose) Negative Appearance (test code = Clear Appearance) Color (test code = Color) Pale Yellow [facility] MedicalBacteria identified in Urine by [id number] 00:00:00 Test Item Value Reference Range Interpretation Comments Bacteria identified in Urine by no growth no growth Culture (test code = 630-4) [facility] MedicalBacteria identified in Urine by [id number] 00:00:00 Test Item Value Reference Range Interpretation Comments Bacteria identified in Urine by no growth no growth Culture (test code = 630-4) [facility] MedicalUrinalysis macro (dipstick) panel - [id number] 00:00:00 Test Item Value Reference Range Interpretation Comments Glucose [Mass/volume] in Urine 1.026 1.003-1.030 --2 hours post 75 g glucose PO (test code = 1520-6) Glucose [Mass/volume] in Serum 5.5 5.0-8.0 or Plasma --2 hours post meal (test code = 1521-4) Glucose [Mass/volume] in Serum negative negative or Plasma --30 minutes post 0.5 g/kg glucose IV (test code = 1522-2) Glucose [Mass/volume] in Serum negative negative or Plasma --30 minutes post 0.05-0.15 U insulin/kg IV post 12H CFst (test code = 1523-0) Glucose [Mass/volume] in Serum negative negative or Plasma --30 minutes post 0.1 U/kg insulin (test code = 1524-8) Glucose [Mass/volume] in Serum 0.2 mg/dL 0.2-1.0 or Plasma --30 minutes post 100 g glucose PO (test code = 1525-5) Glucose [Mass/volume] in Serum negative negative or Plasma --30 minutes post 50 g lactose PO (test code = 1526-3) Glucose [Mass/volume] in Serum small negative A or Plasma --30 minutes post 75 g glucose PO (test code = 1527-1) Glucose [Mass/volume] in Serum negative negative or Plasma --30 minutes post dose insulin IV (test code = 1528-9) Deprecated Glucose uric acid none A [Mass/volume] in Serum or Plasma --30 minutes post dose insulin IV (test code = 1529-7) Glucose [Mass/volume] in Serum 0-4 0-4 or Plasma --3 minutes post 0.5 g/kg glucose IV (test code = 1534-7) Erythrocytes [#/area] in Urine none seen none seen sediment by Microscopy high power field (test code = 17772-8) Glucose [Mass/volume] in Serum none seen 0-1 or Plasma --5 minutes post 0.5 g/kg glucose IV (test code = 1543-8) Deprecated Glucose 0-4 0-4 [Mass/volume] in Serum or Plasma --6 hours post 100 g glucose PO (test code = 1545-3) Glucose [Mass/volume] in Urine none none-few --6 hours post 100 g glucose PO (test code = 1546-1) Glucose [Mass/volume] in Serum none seen 0-1 or Plasma --baseline (test code = 1547-9) Glucose [Mass/volume] in Serum few none-few or Plasma --pre 100 g glucose PO (test code = 1549-5) Coproporphyrin [Mass/time] in few none A 24 hour Stool (test code = 2135-2) Leukocyte esterase [Presence] negative negative in Urine by Test strip (test code = 5799-2) Color of Urine (test code = yellow yellow, straw, cordelia 5778-6) Character of Urine (test code clear clear = 27500-0) [facility] Medical[facility] (dipstick) panel - [id number] 00:00:00 Test Item Value Reference Range Interpretation Comments Glucose [Mass/volume] in Urine 1.026 1.003-1.030 --2 hours post 75 g glucose PO (test code = 1520-6) Glucose [Mass/volume] in Serum 5.5 5.0-8.0 or Plasma --2 hours post meal (test code = 1521-4) Glucose [Mass/volume] in Serum negative negative or Plasma --30 minutes post 0.5 g/kg glucose IV (test code = 1522-2) Glucose [Mass/volume] in Serum negative negative or Plasma --30 minutes post 0.05-0.15 U insulin/kg IV post 12H CFst (test code = 1523-0) Glucose [Mass/volume] in Serum negative negative or Plasma --30 minutes post 0.1 U/kg insulin (test code = 1524-8) Glucose [Mass/volume] in Serum 0.2 mg/dL 0.2-1.0 or Plasma --30 minutes post 100 g glucose PO (test code = 1525-5) Glucose [Mass/volume] in Serum negative negative or Plasma --30 minutes post 50 g lactose PO (test code = 1526-3) Glucose [Mass/volume] in Serum small negative A or Plasma --30 minutes post 75 g glucose PO (test code = 1527-1) Glucose [Mass/volume] in Serum negative negative or Plasma --30 minutes post dose insulin IV (test code = 1528-9) Deprecated Glucose uric acid none A [Mass/volume] in Serum or Plasma --30 minutes post dose insulin IV (test code = 1529-7) Glucose [Mass/volume] in Serum 0-4 0-4 or Plasma --3 minutes post 0.5 g/kg glucose IV (test code = 1534-7) Erythrocytes [#/area] in Urine none seen none seen sediment by Microscopy high power field (test code = 91940-8) Glucose [Mass/volume] in Serum none seen 0-1 or Plasma --5 minutes post 0.5 g/kg glucose IV (test code = 1543-8) Deprecated Glucose 0-4 0-4 [Mass/volume] in Serum or Plasma --6 hours post 100 g glucose PO (test code = 1545-3) Glucose [Mass/volume] in Urine none none-few --6 hours post 100 g glucose PO (test code = 1546-1) Glucose [Mass/volume] in Serum none seen 0-1 or Plasma --baseline (test code = 1547-9) Glucose [Mass/volume] in Serum few none-few or Plasma --pre 100 g glucose PO (test code = 1549-5) Coproporphyrin [Mass/time] in few none A 24 hour Stool (test code = 2135-2) Leukocyte esterase [Presence] negative negative in Urine by Test strip (test code = 5799-2) Color of Urine (test code = yellow yellow, straw, cordelia 5778-6) Character of Urine (test code clear clear = 27205-3) [facility] MedicalUrinalysis macro (dipstick) panel - [id number] 12:04:51 Test Item Value Reference Range Interpretation Comments Leukocytes (test code = Negative Leukocytes) Nitrite (test code = Nitrite) negative Protein (test code = Protein) Negative pH (test code = pH) 6.0 Blood (test code = Blood) Moderate Ketone (test code = Ketone) Negative Glucose (test code = Glucose) Negative Appearance (test code = Slightly Cloudy Appearance) Color (test code = Color) Yellow [facility] MedicalUrinalysis macro (dipstick) panel - [id number] 12:04:51 Test Item Value Reference Range Interpretation Comments Leukocytes (test code = Negative Leukocytes) Nitrite (test code = Nitrite) negative Protein (test code = Protein) Negative pH (test code = pH) 6.0 Blood (test code = Blood) Moderate Ketone (test code = Ketone) Negative Glucose (test code = Glucose) Negative Appearance (test code = Slightly Cloudy Appearance) Color (test code = Color) Yellow [employer]
[2022-02-27 11:27] LABS: Urine Blood 2+ (Negative); Urine Glucose Negative (Negative); Urine Protein 1+ (Negative); Urine Specific Gravity 1.025 (1.005-1.030)
[2022-02-27] MEDS ORDERED: NA CHLORIDE 0.9% 1,000 ML ONE (11:43)
[2022-02-27 11:46] LABS: Absolute Lymphocytes (CBC) 0.9 K/uL (0.7-4.9); Hematocrit 39.8 % (36.0-45.0); Lymphocytes % 17.7 % (15.3-44.8); MCV 94.7 fL (80-100); MPV 7.9 fL (7.6-11.3); RBC Red Blood Cell Count 4.21 M/uL (3.86-4.86)
[2022-02-27 11:51] LABS: Protime INR 1.05
[2022-02-27 11:54] LABS: Urine Mucus 4+ /HPF (None Seen); Urine RBC 21-50 /HPF (None Seen)
[2022-02-27 12:07] LABS: Albumin 3.4 g/dL (3.4-5.0); Bilirubin Direct 0.1 mg/dL (0-0.2); Bilirubin Total 0.3 mg/dL (0.2-1.0); Magnesium 2.2 mg/dL (1.8-2.4); Protein, Total 7.4 g/dL (6.4-8.2)
[2022-02-27 13:01] LABS: SARS-COV-2 RT PCR NEGATIVE (NEGATIVE)
--- NOTE | 2022-02-27 13:24 | EDPHYS ---
Physician Documentation [facility] Name: Radha Nunes Age: 61 yrs Sex: Female : 1960 Arrival Date: 02/27/2022 Time: 10:33 Bed 14 Private MD: ED Physician Antony Ayers HPI: 02/27 11:14 This 61 yrs old Female presents to ER via Ambulatory with complaints of Passed rn Out Prior To Arrival. 11:14 The patient has experienced syncope, collapsed. Onset: The symptoms/episode rn began/occurred just prior to arrival. Duration: This was a single episode. Associated injury: The patient did not suffer any apparent associated injury. Associated signs and symptoms: Pertinent positives: subjective fever and chills, + congestion. Current symptoms: Currently, the patient is not experiencing any symptoms. The patient has not experienced similar symptoms in the past. The patient has not recently seen a physician. 11:16 Pt reports felt like getting sick while on vacation, now 3 days of subjective fever and rn chills, + nasal congestion and sore throat, + nausea. Went to work today and felt lightheaded and generalized weakness/fatigue. Had single syncopal episode. Now feels better, felt it coming. NO chest pain/sob/abd pain. Does report mild diarrhea or change in stool as well. . Historical: - Allergies: 11:04 Sulfa (Sulfonamide Antibiotics); ld1 - Home Meds: 11:04 eyedrops [Active]; ld1 - PMHx: 11:04 Glaucoma; ld1 - PSHx: 11:04 Total abdominal hysterectomy; Pelvic surgery; ld1 - Immunization history:: Adult Immunizations up to date, Client reports receiving the 2nd dose of the Covid vaccine. - Social history:: Smoking status: Patient denies any tobacco usage or history of. Patient/guardian denies using alcohol. - Family history:: not pertinent. - Hospitalizations: : No recent hospitalization is reported. ROS: 11:16 Constitutional: Negative for fever, chills, and weight loss, Eyes: Negative for injury, rn pain, redness, and discharge, ENT: + nasal congestion and sore throat Neck: Negative for injury, pain, and swelling, Cardiovascular: Negative for chest pain, palpitations, and edema, Respiratory: Negative for shortness of breath, cough, wheezing, and pleuritic chest pain, Abdomen/GI: Negative for abdominal pain, and constipation, Back: Negative for injury and pain, MS/Extremity: Negative for injury and deformity, Skin: Negative for injury, rash, and discoloration, Neuro: Negative for headache, numbness, tingling, and seizure. Exam: 11:16 Constitutional: This is a well developed, well nourished patient who is awake, alert, rn and in no acute distress. Head/Face: Normocephalic, atraumatic. Eyes: Periorbital areas with no swelling, redness, or edema. ENT: dry MM, no stridor Neck: Trachea midline, no masses palpated, and no cervical lymphadenopathy. Supple, full range of motion without nuchal rigidity, or vertebral point tenderness. No Meningismus. Cardiovascular: Regular rate and rhythm. No pulse deficits. Respiratory: No increased work of breathing, no retractions or nasal flaring. Abdomen/GI: Soft, non-tender, non-distended Skin: Warm, dry MS/ Extremity: Pulses equal, no cyanosis. Neuro: Awake and alert, GCS 15, oriented to person, place, time, and situation. Motor strength 5/5 in all extremities. Sensory grossly intact. Vital Signs: 10:58 BP 128 / 76; Pulse 71; Resp 18; Temp 98.6(O); Pulse Ox 99% on R/A; Weight 66.22 kg; ld1 Height 5 ft. 3 in. (160.02 cm); Pain 0/10; 11:30 BP 100 / 66; Pulse 67; Pulse Ox 99% on R/A; ko1 12:00 BP 103 / 64; Pulse 69; Pulse Ox 98% on R/A; ko1 12:30 BP 106 / 60; Pulse 65; Pulse Ox 96% on R/A; ko1 13:42 BP 108 / 62; Pulse 62; Pulse Ox 100% ; ko1 10:58 Body Mass Index 25.86 (66.22 kg, 160.02 cm) ld1 MDM: 10:52 Patient medically screened. rn 13:20 Differential Diagnosis: idiopathic syncope, vasovagal episode, viral syndrome, flu, rn dehydration. Data reviewed: vital signs, nurses notes, lab test result(s), EKG, and as a result, I will discharge patient. Counseling: I had a detailed discussion with the patient and/or guardian regarding: the historical points, exam findings, and any diagnostic results supporting the discharge/admit diagnosis, lab results, the need for outpatient follow up, to return to the emergency department if symptoms worsen or persist or if there are any questions or concerns that arise at home. Response to treatment: the patient's symptoms have markedly improved after treatment, and as a result, I will discharge patient. Special discussion: I discussed with the patient/guardian in detail that at this point there is no indication for admission to the hospital. It is understood, however, that if the symptoms persist or worsen the patient needs to return immediately for re-evaluation. 02/27 11:08 Order name: COVID-19/FLU A+B/RSV (Document "Date of Onset" if Symptomatic); Complete rn Time: 13:11 02/27 11:08 Order name: Urine Microscopic Only; Complete Time: 12:42 rn 02/27 11:08 Order name: Basic Metabolic Panel; Complete Time: 12:42 rn 02/27 11:08 Order name: CBC with Diff; Complete Time: 12:42 rn 02/27 11:08 Order name: Hepatic Function; Complete Time: 12:42 rn 02/27 11:08 Order name: Magnesium; Complete Time: 12:42 rn 02/27 11:08 Order name: Protime (+inr); Complete Time: 12:42 rn 02/27 11:08 Order name: Ptt, Activated; Complete Time: 12:42 rn 02/27 11:08 Order name: Troponin High Sensitivity; Complete Time: 12:42 rn 02/27 11:08 Order name: EKG; Complete Time: 11:09 rn 02/27 11:27 Order name: Urine Dipstick-Ancillary; Complete Time: 12:42 EDMS 02/27 11:57 Order name: Urine Culture EDGA 02/27 11:08 Order name: Urine Dipstick-Ancillary (obtain specimen); Complete Time: 11:41 rn 02/27 11:08 Order name: Cardiac monitoring; Complete Time: 12:57 rn 02/27 11:08 Order name: EKG - Nurse/Tech; Complete Time: 12:57 rn 02/27 11:08 Order name: IV Saline Lock; Complete Time: 11:41 rn 02/27 11:08 Order name: Labs collected and sent; Complete Time: 11:40 rn 02/27 11:08 Order name: O2 Per Protocol; Complete Time: 11:40 rn 02/27 11:08 Order name: O2 Sat Monitoring; Complete Time: 11:41 rn Administered Medications: 11:46 Drug: NS 0.9% 1000 ml Route: IV; Rate: 1000 ml; Site: right antecubital; ko1 13:20 CANCELLED (Patient Refused): Potassium Chloride 10 mEq IV at calculated rate once; rn administer over 1-2 hours Disposition Summary: 02/27/22 13:23 Discharge Ordered Location: Home rn Problem: new rn Symptoms: have improved rn Condition: Stable rn Diagnosis - Influenza due to identified novel influenza A virus rn - Syncope rn - Dehydration rn Followup: rn - With: Private Physician - When: As needed - Reason: Recheck today's complaints, Re-evaluation by your physician Discharge Instructions: - Discharge Summary Sheet rn - Dehydration, Adult rn - Influenza, Adult, [id number] rn Forms: - Medication Reconciliation Form rn - Thank You Letter rn - Antibiotic brazer furnace - Prescription Opioid Use rn - Work release form ko1 Prescriptions: - Tamiflu 75 mg Oral Capsule - take 1 tablet by ORAL route every 12 hours for 5 days; 15 tablet; Refills: 0, rn Product Selection Permitted - ondansetron 4 mg Oral tablet,disintegrating - place 1 tablet by TRANSLINGUAL route every 6-8 hours As needed; 15 tablet; rn Refills: 0, Product Selection Permitted Signatures: Dispatcher [employer] Antony Slaughter MD MD rn Dibbern, Lauren RN RN ld1 My Betancur RN RN ko1 Corrections: (The following items were deleted from the chart) 13:20 12:56 Potassium Chloride 10 mEq IV at calculated rate once; administer over 1-2 hours rn ordered. rn 13:20 12:59 Potassium Chloride 10 mEq IV at calculated rate once; administer over 1-2 hours rn ordered. ko1
--- NOTE | 2022-02-27 13:24 | ER ---
Nurse's Notes [facility] Name: Radha Nunes Age: 61 yrs Sex: Female : 1960 Arrival Date: 02/27/2022 Time: 10:33 Bed 14 Private MD: Diagnosis: Influenza due to identified novel influenza A virus;Syncope;Dehydration Presentation: 02/27 10:58 Chief complaint: Patient states: Pt was at work today - syncopal episode, hit head - is ld1 not on blood thinners. Pt reports being sick recently - vomited once on Sunday. Coronavirus screen: At this time, the client does not indicate any symptoms associated with coronavirus-19. Ebola Screen: No symptoms or risks identified at this time. Initial Sepsis Screen: Does the patient meet any 2 criteria? No. Patient's initial sepsis screen is negative. Does the patient have a suspected source of infection? No. Patient's initial sepsis screen is negative. Risk Assessment: Do you want to hurt yourself or someone else? Patient reports no desire to harm self or others. Onset of symptoms was February 27, 2022. 10:58 Method Of Arrival: Ambulatory ld1 10:58 Acuity: SARA 3 ld1 Triage Assessment: 10:58 General: Appears in no apparent distress. comfortable, Behavior is calm, cooperative, ld1 appropriate for age. Pain: Denies pain. EENT: No signs and/or symptoms were reported regarding the EENT system. Neuro: Reports a syncopal episode. Cardiovascular: Capillary refill < 3 seconds Patient's skin is warm and dry. Respiratory: Airway is patent Respiratory effort is even, unlabored. GI: Abdomen is flat, non-distended, Reports nausea. : No signs and/or symptoms were reported regarding the genitourinary system. Derm: No signs and/or symptoms reported regarding the dermatologic system. Musculoskeletal: No signs and/or symptoms reported regarding the musculoskeletal system. Historical: - Allergies: 11:04 Sulfa (Sulfonamide Antibiotics); ld1 - Home Meds: 11:04 eyedrops [Active]; ld1 - PMHx: 11:04 Glaucoma; ld1 - PSHx: 11:04 Total abdominal hysterectomy; Pelvic surgery; ld1 - Immunization history:: Adult Immunizations up to date, Client reports receiving the 2nd dose of the Covid vaccine. - Social history:: Smoking status: Patient denies any tobacco usage or history of. Patient/guardian denies using alcohol. - Family history:: not pertinent. - Hospitalizations: : No recent hospitalization is reported. Screenin:00 Abuse screen: Denies threats or abuse. Denies injuries from another. Nutritional ko1 screening: No deficits noted. Tuberculosis screening: No symptoms or risk factors identified. Fall Risk None identified. Assessment: 11:30 General: Appears in no apparent distress. comfortable, ill, Behavior is calm, ko1 cooperative, appropriate for age, quiet. Pain: Denies pain. Neuro: No deficits noted. Neuro: No deficits noted. Reports dizziness, a syncopal episode. Cardiovascular: No deficits noted. Respiratory: No deficits noted. GI: No deficits noted. : No deficits noted. EENT: No deficits noted. Derm: No deficits noted. Musculoskeletal: No deficits noted. Vital Signs: 10:58 BP 128 / 76; Pulse 71; Resp 18; Temp 98.6(O); Pulse Ox 99% on R/A; Weight 66.22 kg; ld1 Height 5 ft. 3 in. (160.02 cm); Pain 0/10; 11:30 BP 100 / 66; Pulse 67; Pulse Ox 99% on R/A; ko1 12:00 BP 103 / 64; Pulse 69; Pulse Ox 98% on R/A; ko1 12:30 BP 106 / 60; Pulse 65; Pulse Ox 96% on R/A; ko1 13:42 BP 108 / 62; Pulse 62; Pulse Ox 100% ; ko1 10:58 Body Mass Index 25.86 (66.22 kg, 160.02 cm) ld1 ED Course: 10:33 Patient arrived in ED. rg4 10:52 Antony Ayers MD is Attending Physician. rn 10:58 Arm band placed on right wrist. ld1 11:01 Triage completed. ld1 11:08 My Betancur, NADIA is Primary Nurse. ko1 11:30 Inserted saline lock: 20 gauge in right antecubital area, using aseptic technique. ko1 Patient maintains SpO2 saturation greater than 95% on room air. 11:41 Basic Metabolic Panel Sent. ko1 11:41 CBC with Diff Sent. ko1 11:41 Hepatic Function Sent. ko1 11:41 Magnesium Sent. ko1 11:41 Urine Microscopic Only Sent. ko1 11:41 COVID-19/FLU A+B/RSV (Document "Date of Onset" if Symptomatic) Sent. ko1 12:00 Patient has correct armband on for positive identification. Placed in gown. Bed in low ko1 position. Call light in reach. Side rails up X 1. Adult w/ patient. Client placed on continuous cardiac and pulse oximetry monitoring. NIBP monitoring applied. parts assembler on. Door closed. Noise minimized. Lights dimmed. Warm blanket given. Pillow given. 12:00 No provider procedures requiring assistance completed. ko1 12:57 Urine Culture Sent. ko1 13:45 IV discontinued, intact, bleeding controlled, No redness/swelling at site. Pressure ko1 dressing applied. Administered Medications: 11:46 Drug: NS 0.9% 1000 ml Route: IV; Rate: 1000 ml; Site: right antecubital; ko1 13:20 CANCELLED (Patient Refused): Potassium Chloride 10 mEq IV at calculated rate once; rn administer over 1-2 hours Medication: 12:30 VIS not applicable for this client. ko1 Intake: 13:03 IV: 1000ml (IV Fluid); Total: 1000ml. ko1 Outcome: 13:23 Discharge ordered by . rn 13:52 Admitted to ko1 13:52 Discharged to home ambulatory, with family. 13:52 Condition: stable 13:52 Discharge instructions given to patient, family, Instructed on discharge instructions, follow up and referral plans. medication usage, Demonstrated understanding of instructions, follow-up care, medications, Prescriptions given X 2. 14:21 Patient left the ED. ko1 Signatures: Antony Ayers MD MD rn Garcia, Rubi rg4 Tina Ball RN RN ld1 My Betancur RN RN ko1
[2022-02-27 15:27] VITALS: TEMP 98.6
[2022-02-27 15:38] VITALS: BP 108/62; O2SAT 100
--- NOTE | 2022-02-28 08:23 | EKG ---
Test Date: 2022-02-27 Test Time: 11:59:17 Print Production Associate: CHRISTY MEASUREMENT RESULTS: Intervals: Rate: 67 IN: 132 QRSD: 86 QT: 420 QTc: 443 [place]: P: 72 IN: 132 QRS: 29 T: 69 INTERPRETIVE STATEMENTS: Normal sinus rhythm Indeterminate axis Borderline ECG No previous ECG available for comparison Electronically Signed On 02-28-22 08:20:03 IRON MINER BLASTING by Meet Marmolejo
--- NOTE | 2022-02-28 08:24 | EKG ---
Test Date: 2022-02-27 Test Time: 11:58:44 Manufacturing Engineering Intern: CHRISTY MEASUREMENT RESULTS: Intervals: Rate: 65 AL: 138 QRSD: 84 QT: 420 QTc: 436 [place]: P: 21 AL: 138 QRS: -62 T: 70 INTERPRETIVE STATEMENTS: Sinus rhythm with premature ventricular complexes or fusion complexes Indeterminate axis Borderline ECG No previous ECG available for comparison Electronically Signed On 02-28-22 08:20:04 CLAMSHELL OPERATOR by Meet Marmolejo
== END 2022-02-27 14:21 | disposition home or self-care (01) ==
LOC: ER 10:28
DX: J10.1 Influenza due to other identified influenza virus with other respiratory manifestations (principal); E86.0 Dehydration; Z20.822 Contact with and (suspected) exposure to COVID-19; Z88.2 Allergy status to sulfonamides
CPT/HCPCS: 93005 ×2; 87088; 85025; 87086; 80048; 36415; 83735; 85610; 80076; 85730; 87077; 87186; 84484; 0241U; 99285; J7030; 81003; 81015